=== PATIENT | female | born 1990 | race Caucasian/White ===

== ENCOUNTER 2016-11-28 08:47 | Emergency (ER) | payer BC ==
[~2016-11-28 08:47] MED LIST: COL100 PO; PER5 PO; TRAMADOL HCL50 MG PO
[2016-11-28 09:43] VITALS: BP 132/72
== END 2016-11-28 09:44 | disposition home or self-care (01) ==
LOC: ED 08:47
DX: J02.9 Acute pharyngitis, unspecified (principal)

== ENCOUNTER 2017-06-15 12:37 | Emergency (ER) | payer BC ==
[~2017-06-15] VITALS: Ht 152.4 cm; Wt 96.2 kg
[2017-06-15 12:41] VITALS: Ht 152.4 cm; Wt 96.2 kg
[2017-06-15 14:28] VITALS: BP 98/54
== END 2017-06-15 14:28 | disposition home or self-care (01) ==
LOC: ED 12:37
DX: J06.9 Acute upper respiratory infection, unspecified (principal); Z88.5 Allergy status to narcotic agent
CPT/HCPCS: Q0092

== ENCOUNTER 2018-11-15 09:21 | Emergency (ER) | payer BC ==
[~2018-11-15] VITALS: Ht 152.4 cm; Wt 99.3 kg
[2018-11-15 09:26] VITALS: Ht 152.4 cm; Wt 99.3 kg
[2018-11-15 10:25] VITALS: BP 117/82
== END 2018-11-15 10:25 | disposition home or self-care (01) ==
LOC: ED 09:21
DX: J02.9 Acute pharyngitis, unspecified (principal); H66.92 Otitis media, unspecified, left ear; N83.209 Unspecified ovarian cyst, unspecified side; Z88.5 Allergy status to narcotic agent; Z90.89 Acquired absence of other organs